=== PATIENT | female | born 1945 | race Caucasian/White ===

== ENCOUNTER → 2018-11-14 | Outpatient (CLI) | payer OTHER | END | disposition home or self-care (01) | LOC: LAB SHORT 11:30 → LAB 11:30 | DX: R10.9 Unspecified abdominal pain (principal) | CPT/HCPCS: 87086 ==

== ENCOUNTER 2020-08-31 07:33 | Day surgery (SDC) | payer OTHER ==
[2020-08-30 12:40] LABS: BASOPHILS ABSOLUTE AUTO 0.01 K/mm3 (0.00-0.23); BASOPHILS PERCENT AUTO 0 % (0-2); EOSINOPHILS ABSOLUTE AUTO 0.01 K/mm3 (0.00-0.68); EOSINOPHILS PERCENT AUTO 0 % (0-6); Hematocrit 23.5 % (33.0-51.0); Hemoglobin 7.5 g/dL (11.5-16.0); IMMATURE GRAN ABSOLUTE AUTO 0.02 K/mm3 (0.00-0.10); IMMATURE GRAN PERCENT AUTO 0 % (0-1); LYMPHOCYTES ABSOLUTE AUTO 1.16 K/mm3 (0.84-5.20); LYMPHOCYTES PERCENT AUTO 24 % (21-46); MONOCYTES ABSOLUTE AUTO 0.52 K/mm3 (0.16-1.47); MONOCYTES PERCENT AUTO 11 % (4-13); Mean Corpuscular HGB 29.8 pg (26.0-34.0); Mean Corpuscular HGB Conc 31.9 g/dL (31.5-36.5); Mean Corpuscular Volume 93 fL (80-100); Mean Platelet Volume 8.7 fL (9.1-12.4); NEUTROPHILS ABSOLUTE AUTO 3.04 K/mm3 (1.96-9.15); NEUTROPHILS PERCENT AUTO 64 % (41-73); Platelet Count 474 K/mm3 (150-400); RDW Coefficient Variation 19.4 % (11.7-14.2); RDW Standard Deviation 63.3 fL (35.1-46.3); Red Blood Cell Count 2.52 M/mm3 (3.80-5.20); White Blood Cell Count 4.76 K/mm3 (4.00-11.30)
[2020-08-30 13:17] LABS: Albumin, Blood 2.7 g/dL (3.4-5.0); Albumin/Globulin Ratio 0.6 (0.8-1.8); Bilirubin, Total 0.4 mg/dL (0.1-1.0); Calcium, Blood 9.1 mg/dL (8.5-10.1); Globulin, Blood 4.5 g/dL (2.2-4.0); Potassium, Blood 3.9 mmol/L (3.5-5.5); Total Protein, Blood 7.2 g/dL (6.4-8.2)
[~2020-08-31 07:33] MED LIST: ACET325 PO; AMLO5 PO; LISI5 PO; OXYB5ER PO
[2020-08-31] MEDS ORDERED: CENTRUM SILVER1 EAC2 PO (09:23)
[2020-08-31] MEDS ORDERED: ASCO500 PO (09:23)
== END 2020-08-31 10:53 | disposition home or self-care (01) ==
LOC: ATC 07:33
PROVIDERS: Internal Medicine Hematology & Oncology
DX: C56.9 Malignant neoplasm of unspecified ovary (principal); C78.6 Secondary malignant neoplasm of retroperitoneum and peritoneum; I10 Essential (primary) hypertension; N17.9 Acute kidney failure, unspecified; N32.81 Overactive bladder; Z88.2 Allergy status to sulfonamides; Z88.8 Allergy status to other drugs, medicaments and biological substances; Z79.899 Other long term (current) drug therapy
CPT/HCPCS: 36415; 36430; 80053; 85025; 86304; 86850; 86900; 86901; 86923; J7050; P9016

== ENCOUNTER 2021-08-07 13:21 | Emergency (ER) | payer OTHER ==
[~2021-08-07] VITALS: Ht 165.1 cm; Wt 65.3 kg
[~2021-08-07 13:21] MED LIST changes: +ACET500 PO; +ASCO500 PO; +CALCIUM-MAGNES1 EAC9 PO; +CENTRUM SILVER1 EAC2 PO; +Prinivil10 MG PO
[2021-08-07 14:39] LABS: BASOPHILS ABSOLUTE AUTO 0.02 K/mm3 (0.00-0.23); BASOPHILS PERCENT AUTO 0 % (0-2); Bun/Creatinine Ratio 19.2 (12.0-20.0); Calcium, Blood 8.6 mg/dL (8.5-10.1); Creatinine, Blood 1.25 mg/dL (0.40-1.00); EOSINOPHILS ABSOLUTE AUTO 0.01 K/mm3 (0.00-0.68); EOSINOPHILS PERCENT AUTO 0 % (0-6); Hemoglobin 9.4 g/dL (11.5-16.0); IMMATURE GRAN ABSOLUTE AUTO 0.04 K/mm3 (0.00-0.10); IMMATURE GRAN PERCENT AUTO 0 % (0-1); LYMPHOCYTES PERCENT AUTO 5 % (21-46); MONOCYTES ABSOLUTE AUTO 1.12 K/mm3 (0.16-1.47); MONOCYTES PERCENT AUTO 8 % (4-13); Mean Corpuscular HGB 31.3 pg (26.0-34.0); Mean Corpuscular HGB Conc 33.6 g/dL (31.5-36.5); Mean Corpuscular Volume 93 fL (80-100); Mean Platelet Volume 8.9 fL (9.1-12.4); NEUTROPHILS ABSOLUTE AUTO 11.56 K/mm3 (1.96-9.15); NEUTROPHILS PERCENT AUTO 86 % (41-73); Platelet Count 230 K/mm3 (150-400); Potassium, Blood 4.7 mmol/L (3.5-5.5); White Blood Cell Count 13.45 K/mm3 (4.00-11.30)
[2021-08-07 14:58] LABS: Source, Urine Clean Catch
[2021-08-07 15:13] LABS: Appearance, Urine Clear (Clear); Bilirubin, Urine Neg (Neg); Blood, Urine Neg (Neg); Color, Urine Yellow (P-Yellow); Glucose Qualitative, Urine Neg (Neg); Ketones, Urine Neg (Neg); Leukocyte Esterase, Urine 2+ (Neg); Nitrite, Urine Neg (Neg); Protein, Urine 2+ (Neg); Specific Gravity, Urine 1.015 (1.003-1.022); Urobilinogen, Urine NORM (Normal)
[2021-08-07 15:27] LABS: Bacteria Few /hpf; Red Blood Cells, Urine 0-2 /hpf (0-2); Squamous Epithelial Cells Few /hpf (Few)
[2021-08-07 15:28] LABS: Hyaline Casts 0-2 /lpf (0-2)
[2021-08-07] MEDS ORDERED: CIPR500 PO (16:22)
[2021-08-09] MEDS ORDERED: Procardia10 MG PO (15:11)
[2021-08-09] MEDS ORDERED: CRAN-MAX500 MG PO (15:12)
== END 2021-08-07 16:50 | disposition home or self-care (01) ==
LOC: ER 13:21
PROVIDERS: Student in an Organized Health Care Education/Training Program
DX: N39.0 Urinary tract infection, site not specified (principal); E86.0 Dehydration; R42 Dizziness and giddiness; Z88.2 Allergy status to sulfonamides; Z79.899 Other long term (current) drug therapy
CPT/HCPCS: 36415; 71045; 80048; 81001; 83605; 85025; 87040; 87086; 93005; 93010; 96374; 99285-25; J0696; J7030